=== PATIENT | female | born 2000 | race Caucasian/White ===

== ENCOUNTER 2020-03-29 13:14 | Outpatient (REF) | payer MEDICAID, SELFPAY ==
--- NOTE | 2020-03-29 13:27 | US_ITS ---
EXAMINATION: US DIAGNOSTIC ULTRASOUND BREAST, RIGHT CLINICAL INFORMATION: 20-year-old with pain lower outer right breast for 2 months. Recent right breast trauma with ecchymosis. Ecchymosis has resolved since injury. No palpable mass noted by patient. No discharge. No prior breast imaging. Family history breast cancer maternal grandmother age 60. COMPARISON: None. TECHNIQUE: Ultrasound right breast is targeted to the area of clinical concern 5:00 through 10:00 position. Grayscale imaging and color Doppler are performed without and with harmonics. FINDINGS: There is no focal suspicious finding. There is no cystic or solid mass, architectural abnormality, duct ectasia, or edema in the soft tissue planes. Results are discussed with the patient at time of visit, using an spanish interpreter. US/US breast RT limited IMPRESSION: Normal study. ASSESSMENT: BI-RADS 1: Negative RECOMMENDATION: Patient's right breast pain should be managed based on the clinical impression. Annual screening mammography beginning age 40, or earlier as clinical risk factors warrant. This patient's information was entered into a reminder system with a target due date for their next mammogram.
== END 2020-03-29 13:15 | disposition home or self-care (01) ==
LOC: HO.MAMMO 13:14
PROVIDERS: Visit Provider Nurse Practitioner Family
DX: N64.4 Mastodynia (principal)
CPT/HCPCS: 76642

== ENCOUNTER → 2022-07-21 11:00 | Outpatient (REF) | payer MEDICAID, SELFPAY ==
--- NOTE | 2022-07-21 11:05 | CA_ITS ---
Transthoracic Echocardiogram Patient (Last, First, Middle): Jarrod Wilder, Gender: Female Date of : 2000 Age: 22 Procedure Date: 07/21/2022 Procedure Type: Transthoracic Echocardiogram Location: OP Height: 167. cm Weight: 86.18 kg BSA: 1.95 m2 Heart Rate: 78 bpm BP: 115 / 65 mmHg Litigation Manager: ARACELY Referring MD: Giovanna Ann DO Symptoms: PALPITATIONS R00.2 Study Quality: Adequate ECG Rhythm: Sinus Conclusions: - The left ventricular systolic function is normal. The calculated ejection fraction is 60% by biplane method. - No obvious valvular pathology seen on this study. Findings Left Ventricle Normal left ventricular cavity size. There is normal left ventricular wall thickness. The left ventricular systolic function is normal. The calculated ejection fraction is 60% by biplane method. There is no evidence of regional wall motion abnormalities. Diastolic function is normal for age. Right Ventricle Normal right ventricular cavity size and systolic function. Atria Both atria are normal in size. Aortic Valve There is a normal trileaflet aortic valve. There is no aortic valve stenosis. There is no aortic valve regurgitation. Mitral Valve The mitral valve appears normal. There is no mitral valve regurgitation. There is no mitral valve stenosis. Pulmonic Valve The pulmonic valve is likely normal. Tricuspid Valve Normal tricuspid valve structure. There is trace tricuspid valve regurgitation. There is no evidence of pulmonary hypertension. Great Vessels The asc aorta is normal in size. Venous The inferior vena cava is normal in size and collapses greater than 50% with inspiration. Pericardium/Pleural There is no evidence of pericardial effusion. Prior Study Comparison No prior study available for comparison. Recommendations, Care & Conclusions No obvious valvular pathology seen on this study. Measurements 2D Linear Measurements IVSd: 0.83 0.6-0.9/0.6-1.0 cm LVIDd: 4.37 3.9-5.3/4.2-5.9 cm LVIDd Index: 2.24 2.4-3.2/2.2-3.1 cm/m2 LVIDs: 3.01 2.0-3.6 cm LVPWd: 0.81 0.7-1.1 cm LA Diam: 2.90 2.7-3.8/3.0-4.0 cm LAIDs Index: 1.49 1.5-2.3 cm/m2 LV Mass: 138.52 67-162/88-224 g LV Mass Index: 71.04 43-95/49-115 g/m2 LVOT Diam: 1.90 3.0+(-)1.3 cm 2D Systolic Function EF 4C: 60.80 >55% EF 2C: 60.90 >55% EF BiP: 59.90 >55% Mitral Valve MV Pk E: 0.85 MV PK A: 0.80 MV Decel Time: 217.00 E/A: 1.10 E'Lateral: 17.00 E'Medial: 10.20 E/E' Med: 8.30 E/E' Lat: 5.00 PHT: 63.00 MVA PHT: 3.49 Decel [place]: 3.92 Aortic Valve AoV Pk Eduard: 1.22 AoV Mn Eduard: 0.82 AoV VTI: 0.25 AoV Pk Grad: 6.00 Aov Mn Grad: 3.00 SHAY Cont.VTI: 2.21 LVOT LVOT Pk Eduard: 1.02 LVOT Mn Eduard: 0.71 LVOT VTI: 0.19 LVOT Pk Grad: 4.00 LVOT Mn Grad: 2.00 LVOT Diam: 1.90 LVOT Area: 2.84 Diastolic Function MV Pk E: 0.85 MV Pk A: 0.80 E/A: 1.10 E'Medial: 10.20 E/E' Med: 8.30 E' Laterial: 17.00 E/E' Lat: 5.00 Right Ventricle TAPSE (mm): 22.10 TVS' Eduard: 11.90 Tricuspid Valve TR Pk Eduard: 1.65 TR Pk Grad: 11.00 RA Press: 3.00 RVSP: 14.00 Great Vessels Aorta Sinus of Valsalva: 3.20 2.0-3.5 cm Ao Asc: 2.80 2.1-3.4 cm Pulmonary Valve PV Pk Eduard: 1.09 Peak PV Grad: 5.00 Updated in Other Vendor System with Status of Final Gilbert Rosario MD electronically signed on 07/21/2022 4:34:10 PM with status of Final
== END ==
LOC: HO.CARD 11:00
PROVIDERS: PCP Internal Medicine; Visit Provider Family Medicine
DX: R00.2 Palpitations (principal)
CPT/HCPCS: 93306

== ENCOUNTER 2023-01-11 19:04 | Outpatient (REF) | payer MEDICAID, SELFPAY ==
[2023-01-12 05:49] LABS: CT PCR NOT DETECTED (Not Detect.); NG PCR NOT DETECTED (Not Detect.)
== END 2023-01-11 19:05 | disposition home or self-care (01) ==
LOC: HO.HHCLNP 19:04
PROVIDERS: Visit Provider Advanced Practice Midwife
DX: Z11.3 Encounter for screening for infections with a predominantly sexual mode of transmission (principal)
CPT/HCPCS: 0353U; 88142

== ENCOUNTER 2025-01-16 16:18 | Outpatient (REF) | payer MEDICAID, SELFPAY ==
--- OUTSIDE RECORDS SUMMARY | 2025-01-16 14:45 | XMS_ITS | Encounter Summary ---
Author Organization [employer] Address [address] [place] [address] Care Team Providers Care Planer Hand Name Role Phone Giovanna Ann DO Primary Care Provider Reason for Visit * Reason Comments procidure Encounter Details Date Type Department Care Team (Latest Contact Info) Description 01/16/2025 2:45 PM EDT Procedure Visit [facility] [address] [place], [place] [phone] Cat Raymond CNM [address], [place] [phone] Encntr for removal and reinsertion of uterin contracep dev (Primary Dx); Screening examination for venereal disease Social History Tobacco Use Types Packs/Day Years Used Date Smoking Tobacco: Never Smokeless Tobacco: Never Tobacco Cessation:Counseling Given: Not Answered Alcohol Use Standard Drinks/Week Comments Never 0 (1 standard drink = 0.6 oz pur e alcohol) Housing Stability Answer Date Recorded What is your housing situation today? 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 Do you have problems with any of the following? None of the above 03/25/2023 Food Insecurity Answer Date Recorded Within the past 12 months, y ou worried that your food would run out before you got money to buy more: Never True 03/25/2023 Within the past 12 months,th e food you bought just didn't last and you didn't have enough money to get more: Never True Transportation Answer Date Recorded In the past 12 months, has l ack of transportation kept you from medical appts, meetings, work or from getting things needed for daily living? Yes, it has kept me from medical appointments or getting medications. 03/14/2023 Utilities Answer Date Recorded In the past 12 months, has t he electric, gas, oil or water company threatened to shut off services in your home? No 03/25/2023 Depression Answer Date Recorded Patient Health Questionnaire-2 Score 0 07/09/2022 Comments No Intention Date Recorded No desire to become (finding) 0 01/16/2025 Sex and Gender Information Value Date Recorded Sex Assigned at Female 04/06/2022 10:36 AM EDT Legal Sex Female 10:36 AM EDT Gender Identity Female 04/06/2022 10:36 AM EDT Sexual Orientation Choose not to disclose 2021 10:36 AM EDT documented as of this encounter Last Filed Vital Signs Vital Sign Reading Time Taken Comments Blood Pressure 122/68 01/16/2025 2:16 PM EDT Pulse 67 01/16/2025 2:16 PM EDT Temperature 36.7 C (98.1 F) 01/16/2025 2:16 PM EDT Respiratory Rate 14 01/16/2025 2:16 PM EDT Oxygen Saturation 98% 01/16/2025 2:16 PM EDT Inhaled Oxygen Concentration - - Weight 80.2 kg (176 lb 12.8 oz) 025 2:16 PM EDT Height - - Body Mass Index 30.35 01/11/2023 11:26 AM EDT documented in this encounter Progress Notes * Cat Raymond CNM - 01/16/2025 2:45 PM EDTAssociated Order(s): IUD Management Subjective Patient ID: Jarrod Ferreira is a 24 y.o. female who presents for IUD replacement Pap NIL 01/2023. Mirena inserted after of 6y old (not immediately PP) in 2017. Amenorrheic with IUD. Would like replacement today. Aware we have Liletta here (same medication dose, same durationof use, different name). test negative today. No contraindications to IUD. Review of Systems Genitourinary: Negative for dyspareunia, menstrual problem, vaginal bleeding, vaginal discharge andvaginal pain. Objective BP 122/68 (BP Location: Left arm, Patient Position: Sitting, BP Cuff Size: Adult) Pulse 67 Temp98.1 ??F (36.7 ??C) (Oral) Resp 14 Wt 176 lb 12.8 oz (80.2 kg) SpO2 98% BMI 30.35 kg/m?? Physical Exam Business Ethics Professor present: ARABELLA Peña. Constitutional: Appearance: Normal appearance. Genitourinary: General: Normal vulva. Labia: Right: No rash, tenderness, lesion or injury. Left: No rash, tenderness, lesion or injury. Vagina: Normal. No signs of injury and foreign body. No vaginal discharge, erythema, tenderness, bleeding or lesions. Cervix: No cervical motion tenderness, discharge, friability, lesion, erythema, cervical bleeding or eversion. Uterus: Normal. Not enlarged and not tender. Adnexa: Right adnexa normal and left adnexa normal. Right: No mass, tenderness or fullness. Left: No mass, tenderness or fullness. Comments: IUD strings noted. Body of IUD nonpalpable Neurological: Mental Status: She is alert. Psychiatric: Mood and Affect: Mood normal. Behavior: Behavior normal. Assessment/Plan Diagnoses and all orders for this visit: Encntr for removal and reinsertion of uterin contracep dev - POCT , urine manually resulted - ibuprofen tablet 400 mg - lidocaine 2 % gel - Levonorgestrel intrauterine device 20.1 mcg/day Mild vasovagal reaction after insertion. Resolved with rest, position change and cold compress. No loss of consciousness. Reviewed normal side effects and danger signs. Report heavy bleeding, fever, chills or abdominal pain. Reviewed how to check IUD strings. Report if change in string length, strings not palpable or ifplastic is felt. Do not pull on strings. Remove/replace IUD by 8 y from insertion. May remove any time before then if desired. Advised IUD not effective for 7 days, use backup method until then, and until followup visit as precaution. IUD Management Performed by: Cat Raymond CNM Authorized by: Cat Raymond CNM Procedure: IUD removal and insertion Consent obtained by patient, parent, or legal power of deputy prosecuting attorney - including discussion of procedurerisks and benefits, patient questions answered, and patient education provided: yes Other reason for removal: Expiration Strings visualized: yes Cervix cleaned with: iodopovidone Tenaculum applied to cervix: yes (posterior lip) IUD grasped by forceps: yes IUD removed: yes Removed without complications: yes IUD intact: yes risk: reasonably certain the patient is not Immediately prior to procedure a time out was called: yes Pelvic exam performed: yes Speculum placed in vagina: yes Cervix cleaned and prepped: yes Tenaculum/Allis/Ring Forceps applied to cervix: yes Anesthesia used: yes Local anesthesia: Topical Local anesthetic: Lidocaine Other local anesthetic: GlydoGel Anesthetic strength (%): 2 Volume (mL): 6 Uterus sound depth (cm): 8 IUD inserted without complications: yes OSM: 20.1 mcg/day Levonorgestrel 20.1 MCG/DAY Strings trimmed to (cm): 3 Patient tolerated procedure well: yes Intended removal date: 8 years Insertion comments: Mild vasovagal reaction after insertion. Resolved with rest, position change and cold compress. No loss of consciousness. Screening examination for venereal disease - Chlamydia/N. Gonorrhoeae, PCR, Urine documented in this encounter Plan of Treatment Upcoming Encounters Date Type Department Care Team (Late st Contact Info) Description 02/15/2025 2:00 PM EDT Office Visit [facility] [address] [place] [phone] Cat Raymond CNM [address] [place] [phone] 02/28/2025 2:30 PM EDT Office Visit [facility] [address] [place] [phone] Susan Ratliff MD [address] [place] [phone] Scheduled Orders Name Type Priority Associated Diagnoses Orde r Schedule Chlamydia/N. Gonorrhoeae, PCR, Urine Lab Routine Screening examination for venereal disease Ordered: 01/16/2025 documented as of this encounter Procedures Procedure Name Priority Date/Time Associated Diagnosis Comments IA REMOVAL INTRAUTERINE DEVICE IUD Routine 01/16/2025 2:45 PM EDT Encntr for removal and reinsertion of uterin contracep dev IA INSERTION INTRAUTERINE DEVICE IUD Routine 01/16/2025 2:45 PM EDT Encntr for removal and reinsertion of uterin contracep dev POCT , URINE Routine 01/16/2025 2:25 PM EDT Encntr for removal and reinsertion of uterin contracep dev documented in this encounter Results * IA INSERTION INTRAUTERINE DEVICE IUD, IA REMOVAL INTRAUTERINE DEVICE IUD (01/16/2025 2:45 PM EDT) Cat Fermin CNM - 01/16/2025 2:45 PM EDT Cat Raymond CNM 01/16/2025 3:27 PM IUD Management Performed by: Cat Raymond CNM Authorized by: Cat Raymond CNM Procedure: IUD removal and insertion Consent obtained by patient, parent, or legal power of deputy prosecuting attorney - including discussion of procedure risks and benefits, patient questions answered, and patient education provided: yes Other reason for removal: Expiration Strings visualized: yes Cervix cleaned with: iodopovidone Tenaculum applied to cervix: yes (posterior lip) IUD grasped by forceps: yes IUD removed: yes Removed without complications: yes IUD intact: yes risk: reasonably certain the patient is not Immediately prior to procedure a time out was called: yes Pelvic exam performed: yes Speculum placed in vagina: yes Cervix cleaned and prepped: yes Tenaculum/Allis/Ring Forceps applied to cervix: yes Anesthesia used: yes Local anesthesia: Topical Local anesthetic: Lidocaine Other local anesthetic: GlydoGel Anesthetic strength (%): 2 Volume (mL): 6 Uterus sound depth (cm): 8 IUD inserted without complications: yes OSM: 20.1 mcg/day Levonorgestrel 20.1 MCG/DAY Strings trimmed to (cm): 3 Patient tolerated procedure well: yes Intended removal date: 8 years Insertion comments: Mild vasovagal reaction after insertion. Resolved with rest, position change and cold compress. No loss of consciousness. us Cat Raymond CNM IN CLINIC/BEDSIDE ORDERAB LES Final Result * POCT , urine manually resulted (01/16/2025 2:25 PM EDT) Preg Test, Ur Negative Negative, Indeterminate, None Detected, Invalid, Specimen unsatisfactory for evaluation, Weakly Positive, 2+ QC Media Lot # [id number] Lot# Expiration Date [id number] Urine 01/16/2025 2:25 PM EDT Cat Raymond CNM POINT OF CARE TEST ENTER/ EDIT ORDERABLES Final Result documented in this encounter Visit Diagnoses Diagnosis Encntr for removal and reinsertion of uterin contracep dev- Primary Screening examination for venereal disease documented in this encounter Administered Medications Active Administered Medications - up to 3 most recent administrations Medication Order MAR Action Action Date Dose Rate Site lidocaine 2 % gel Topical, As needed, mild pain, Starting on Wed01/16/25 at 1425Indications:Encntr for removal and reinsertion of uterin contracep dev Given 01/16/2025 2:30 PM EDT Inactive Administered Medications - up to 3 most recent administrations Medication Order MAR Action Action Date Dose Rate Site ibuprofen tablet 400 mg 400 mg, Oral, Once, On Wed01/16/25 at 1500, For 1 doseIndications:Encntr for removal and reinsertion of uterin contracep dev Given 01/16/2025 2:53 PM EDT 400 mg Levonorgestrel intrauterine device 20.1 mcg/day 20.1 mcg/day, Intrauterine, Once PRN Procedure, Starting on Wed01/16/25 at 1445, For 1 doseIndications:Encntr for removal and reinsertion of uterin contracep dev Given 01/16/2025 2:45 PM EDT 20.1 mcg/day documented in this encounter Care Teams Planer Hand Relationship Specialty Start Date End Date Giovanna Ann DO [address] [place] [phone] PCP - General Family Medicine 03/05/20 documented as of this encounter
[2025-01-17 04:12] LABS: CT PCR Urine NOT DETECTED (Not Detect.); NG PCR Urine NOT DETECTED (Not Detect.)
== END 2025-01-16 16:19 | disposition home or self-care (01) ==
LOC: HO.HHCLNP 16:18
PROVIDERS: Visit Provider Advanced Practice Midwife
DX: Z11.3 Encounter for screening for infections with a predominantly sexual mode of transmission (principal); Z11.8 Encounter for screening for other infectious and parasitic diseases
CPT/HCPCS: 87491; 87591

== ENCOUNTER 2025-01-28 12:22 | Emergency (ER) | payer MEDICAID, SELFPAY ==
--- NOTE | ~2025-01-28 | US_ITS ---
CLINICAL HISTORY: pain --- Additional Notes or Special Instructions: recent IUD placement US female pelvis LMP:Unknown. Technique: Ultrasound examination of the pelvis was performed with transabdominal and transvaginal technique for better visualization of the ovaries. Images include: color Doppler. Comparison: None available Findings: Anteverted uterus measuring 8.9 x 3.9 x 3.7cm without masses. Intrauterine device in appropriate position. Thin endometrium with fluid in the endometrial canal. The right ovary is normal in size, measuring 3.2 x 2.4 x 2.5cm, volume of 10.0mL. There is normal echogenicity and vascularity. Heterogeneous avascular lesion measuring 2.2 x 1.7 x 1.9 cm. The left ovary is normal in size, measuring 2.7 x 1.6 x 1.9cm, volume of 4.3mL. There is normal echogenicity and vascularity. No lesions. There is a small amount of fluid in the cul-de-sac, which is likely physiologic. Impression: Properly positioned intrauterine device. 2.2 cm right ovarian cyst could be a hemorrhagic corpus luteum. 8-12 week follow up pelvic ultrasound can be performed. This document has been electronically signed by: Maura Celestin MD on 01/28/2025 17:14:56
[2025-01-28 12:29] VITALS: BP 122/74; PULSE 65; RESP 18; TEMP 36.8; O2SAT 99; BMI 30.3
--- NOTE | 2025-01-28 12:36 | PC.NURSE ---
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
--- NOTE | 2025-01-28 12:37 | ED_ITS ---
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 Patient denies any bleeding. She denies fevers, chills, nausea, vomiting, urinary symptoms. She denies any new sexual partners. She is sexually active with 1 male partner. She is not concern for sexually transmitted diseases. Related Data Allergies Allergy/AdvReac Type Severity Reaction Status Date / Time shrimp (SHRIMP) Allergy Severe SWELLING Verified 01/28/25 12:30 Review of Systems 2 Review of Systems: Yes all other systems are reviewed and are negative Constitutional: Constitutional: Reports no additional constitutional complaints, Denies body ache(s), Denies chills, Denies fever(s), Denies headache(s) and Denies weakness Eyes: Eyes: Reports no additional eye complaints and Denies change in vision ENT: Reports system reviewed and no additional complaints, except as documented, Denies dizziness, Denies headache(s), Denies nasal congestion, Denies nasal discharge and Denies neck pain Cardiovascular: Cardiovascular: Reports no additional cardiovascular complaints, Denies chest pain, Denies leg edema and Denies dyspnea Respiratory: Respiratory: Reports no additional respiratory complaints, Denies cough and Denies dyspnea Gastrointestinal: Gastrointestinal: Reports no additional gastrointestinal complaints, Reports abdominal pain, Denies diarrhea, Denies nausea and Denies vomiting Genitourinary: Genitourinary: Reports no additional female genitourinary complaints and Denies urinary incontinence Musculoskeletal: Musculoskeletal: Reports no additional musculoskeletal complaints, Denies back pain, Denies arthralgias, Denies joint swelling, Denies neck pain, Denies numbness and Denies tingling Integumentary/Breasts: Skin/Breast: Reports system reviewed and no additional complaints, except as docu and Denies rash Neurologic: Reports system reviewed and no additional complaints, except as documented, Denies Abnormal speech present, Denies dizziness, Denies headache(s), Denies numbness, Denies tingling and Denies weakness PMFSH Past Medical History Attestation statement: The following information was validated with the patient. Source: old records reviewed and nursing notes reviewed Social History Social History Advance Directives: No Advance Directives Information Provided: No Do you have a plan to hurt others: No Plan Physical Exam ED Vital Signs: Vital Signs - 24 hr 01/28/25 12:29 01/28/25 16:19 01/28/25 17:47 Temperature 98.2 F 98.6 F Pulse Rate 65 69 69 Respiratory Rate 18 18 18 Blood Pressure 122/74 110/65 110/65 Pulse Oximetry 99 99 99 Oxygen Delivery Method Room Air Room Air Room Air BMI result Body Mass Index 30.3 Const General: cooperative, healthy appearing, comfortable and no acute distress Orientation/consciousness: patient oriented x3 Limitations: no limitations HENMT Head: Yes normal to inspection Ears: hearing grossly normal bilaterally General nose exam: Normal external nose present Face and sinus: Yes normal facial exam Mouth: Normal oral and palatal mucosa present Throat: Yes posterior oropharynx normal Eyes General: appearance normal, both eyes and all related structures Pupils: Equal, round and reactive pupils present Neck Neck: Yes normal visual inspection Chest Chest palpation & inspection: normal inspection of the chest Resp Effort & Inspection: normal respiratory effort Auscultation: clear to auscultation bilaterally Cardio Rate: regular rate Rhythm: regular rhythm Peripheral pulses: Peripheral pulses 2+ throughout GI Inspection: Yes normal to inspection Palpation (GI): Soft to palpation and nontender Auscultation: normal bowel sounds Other: 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 External Female Exam: normal external appearance Speculum Exam - Vagina: normal appearance of the vagina Speculum Exam - Cervix: normal appearance of the cervix Back/Spine/Pelvis Thoracic/Lumbar Spine: thoracic and lumbar spine normal to inspection Skin General skin exam: no rashes or lesions noted Neuro General: patient oriented x3, no focal motor deficits and normal sensation to monofilament Cranial nerves: Yes Equal, round and reactive pupils present Cognition (Neuro): normal cognition Speech: No Abnormal speech present Gait exam (Neuro): Normal gait present Motor exam (neuro): 5/5 motor strength present throughout Extrem General: Yes normal to inspection Course Course Course Narrative: RME, this is a rapid medical exam performed by Raúl Rivera please refer to primary provider for complete H&P- 24-year-old female presents for evaluation of pelvic pain. She reports that last week she had an IUD inserted and has had severe cramping and pain. She reports getting sweaty when the pain starts. Plan for basic labs, , urinalysis and an ultrasound Reevaluation(s) Reevaluation #1: Ultrasound showed IUD in the correct place. There is no signs of infection in her urine. Her labs are unremarkable. I did review this with the patient. She does have a small cyst on the right ovary. She does want me to remove IUD. She is aware that she will need to use appropriate control after this. Reviewed worrisome signs and symptoms of when to return to the emergency room. Comfortable plan for discharge home Procedures Procedure Narrative Procedure Narrative: The patient's IUD was removed with ring forceps. Patient tolerated procedure well Medical Decision Making Medical Decision Making MDM Narrative: This is a 24-year-old female with no known medical history presents the ER with complaints of lower pelvic cramping for the last 1 week after having an IUD placed at [facility]. Patient denies any bleeding. She denies fevers, chills, nausea, vomiting, urinary symptoms. She denies any new sexual partners. She is sexually active with 1 male partner. She is not concern for sexually transmitted diseases. No focal abdominal pain on exam. Pelvic exam shows IUD with strings noted. No cervical motion tenderness with bimanual tenderness. No adnexal tenderness. Will obtain labs, UA, urine , ultrasound to confirm placement Differential Diagnosis Differential Diagnoses: The differential diagnosis associated with the presentation includes IUD malposition, STI, UTI Low suspicion for acute abdomen, TOA, PID based on clinical exam Admission/Observation Consideration of admission/observation: Escalation of care including admission/observation considered Lab Data [facility] Lab Attestation statement: I reviewed the patient's lab results. 01/28/25 13:08 01/28/25 13:09 Labs: Lab Results 01/28/25 01/28/25 01/28/25 Range/Units 13:08 13:09 16:26 WBC 8.7 (4.8-10.8) X10*3/uL RBC 4.67 (4.20-5.50) X10*6/uL Hgb 13.9 (12.0-16.0) g/dl Hct 41.1 (37.0-47.0) % MCV 88.0 (80.0-98.0) fL MCH 29.8 (27.0-33.0) pg MCHC 33.8 (31.0-35.0) g/dl RDW 12.4 (11.0-16.0) % Plt Count 293 (160-400) X10*3/uL MPV 9.4 (9.4-12.3) fL Immature Gran % (Auto) 0.5 H (0.0-0.4) % Neut % (Auto) 73.5 H (45-73) % Lymph % (Auto) 18.2 L (20-40) % [place] % (Auto) 7.0 (2-11) % Eos % (Auto) 0.3 (0-4) % Baso % (Auto) 0.5 (0-2) % Lymph # (Auto) 1.6 (1.2-4.9) X10*3/uL [place] # (Auto) 0.6 (0.1-1.2) X10*3/uL Eos # (Auto) 0.0 (0.0-0.4) X10*3/uL Baso # (Auto) 0.0 (0.0-0.2) X10*3/uL Abs Immat Gran (auto) 0.04 H (0.00-0.03) X10*3/uL Absolute Neuts (auto) 6.4 (2.0-8.3) x10*3/uL Absolute Nucleated RBC 0.000 (0.0-0.012) X10*3/uL Nucleated RBC % (auto) 0.0 (0.0-0.2) /100WBC Sodium 140 (135-145) mmol/L Potassium 4.2 (3.3-5.1) mmol/L Chloride 106 (96-108) mmol/L Carbon Dioxide 25 (22-29) mmol/L Anion Gap 13 (12-20) BUN 12 (9-16) mg/dL Creatinine 0.85 (0.5-1.4) mg/dL Estim Creat Clear Calc 102.7 Estimated GFR > 60 Random Glucose 84 (60-115) mg/dL Calcium 9.3 (8.4-10.2) mg/dL Total Bilirubin 0.7 (0.0-1.0) mg/dL AST 25 (5-31) U/L ALT 20 (0-31) U/L Alkaline Phosphatase 57 (39-117) U/L Total Protein 7.0 (6.5-8.0) g/dL Albumin 4.4 (3.5-5.0) g/dL Beta HCG, Quant < 2 mIU/mL Urine Color Yellow Urine Appearance Clear Urine pH 7.5 (5.0-9.0) Ur Specific [place] 1.010 (1.005-1.025) Urine Protein Negative (Neg-Trace) mg/dL Urine Glucose (UA) Negative (Negative) mg/dL Urine Ketones Negative (Negative) mg/dL Urine Blood Negative (Negative) Urine Nitrite Negative (Negative) Ur Leukocyte Esterase Trace H (Negative) Urine RBC 0-2 (0-2) /HPF Urine WBC 0-5 (0-5) /HPF Ur Squamous Epith Cells 0-2 (0-2) /HPF Urine Bacteria None Seen (None Seen) Hyaline Casts 0-2 (0-2) /LPF Urine Test NEGATIVE (NEGATIVE) Independent Interpretation I performed an independent interpretation of an: Ultrasound Interpretation: I independently viewed the ultrasound agree with the radiology report Radiology Impression Discussion of test interpretation with radiology: I have reviewed the radiologist's reading. Radiologist Impression: [place] [phone] Ultrasound Report Signed Patient: Jarrod Wilder MR#: [id number] : 2000 Acct:[id number] Age/Sex: 24 / F ADM Date: 01/28/25 Loc: .ED Attending Dr: Ordering Physician: Mata Rivera Date of Service: 01/28/25 Procedure(s): US pelvic and transvaginal Accession Number(s): [id number] cc: Giovanna Ann DO; Mata Rivera~ CLINICAL HISTORY: pain --- Additional Notes or Special Instructions: recent IUD placement US female pelvis LMP:Unknown. Technique: Ultrasound examination of the pelvis was performed with transabdominal and transvaginal technique for better visualization of the ovaries. Images include: color Doppler. Comparison: None available Findings: Anteverted uterus measuring 8.9 x 3.9 x 3.7cm without masses. Intrauterine device in appropriate position. Thin endometrium with fluid in the endometrial canal. The right ovary is normal in size, measuring 3.2 x 2.4 x 2.5cm, volume of 10.0mL. There is normal echogenicity and vascularity. Heterogeneous avascular lesion measuring 2.2 x 1.7 x 1.9 cm. The left ovary is normal in size, measuring 2.7 x 1.6 x 1.9cm, volume of 4.3mL. There is normal echogenicity and vascularity. No lesions. There is a small amount of fluid in the cul-de-sac, which is likely physiologic. Impression: Properly positioned intrauterine device. 2.2 cm right ovarian cyst could be a hemorrhagic corpus luteum. 8-12 week follow up pelvic ultrasound can be performed. Discharge Plan Discharge Clinical Impression: Pelvic pain Patient Disposition: Home, Self-Care Instructions: Pelvic Pain (ED) Additional Instructions: Expect to have some cramping and bleeding after having your IUD removed You may take Motrin or Tylenol for pain as needed We will call you if your swabs are positive for any vaginal infections and if you require any additional treatment Be aware you will need an alternate control method Referrals: Giovanna Ann DO [Primary Care Provider, Internal Medicine] Interventions: ED Discharge Assessment Last Done: 01/28/25 17:47 Discharge Date/Time: 01/28/25 17:49 Print Language: Armenian
[2025-01-28 13:29] LABS: MANUAL DIFF FLAG NO
[2025-01-28 13:39] LABS: Hematocrit 41.1 % (37.0-47.0); Hemoglobin 13.9 g/dl (12.0-16.0); Imm Gran Abs Auto 0.04 X10*3/uL (0.00-0.03); Imm Gran Pct Auto 0.5 % (0.0-0.4); Lymphocytes Absolute Auto 1.6 X10*3/uL (1.2-4.9); Mean Corpuscular HGB Conc 33.8 g/dl (31.0-35.0); Mean Corpuscular Hemoglobin 29.8 pg (27.0-33.0); Mean Corpuscular Volume 88.0 fL (80.0-98.0); NRBC Abs Auto 0.000 X10*3/uL (0.0-0.012); NRBC Pct Auto 0.0 /100WBC (0.0-0.2); Platelet Count 293 X10*3/uL (160-400); Red Blood Count 4.67 X10*6/uL (4.20-5.50); White Blood Count 8.7 X10*3/uL (4.8-10.8)
[2025-01-28 13:54] LABS: Alanine Aminotransferase 20 U/L (0-31); Albumin Level 4.4 g/dL (3.5-5.0); Alkaline Phosphatase 57 U/L (39-117); Anion Gap 13 (12-20); Aspartate Amino Transferase 25 U/L (5-31); Blood Urea Nitrogen 12 mg/dL (9-16); Calcium 9.3 mg/dL (8.4-10.2); Carbon Dioxide 25 mmol/L (22-29); Chloride 106 mmol/L (96-108); Creatinine Clr Calc Pharmacy 102.7; Estimated Glomerular Filt Rate > 60; Potassium 4.2 mmol/L (3.3-5.1); Sodium 140 mmol/L (135-145); Total Protein 7.0 g/dL (6.5-8.0)
--- OUTSIDE RECORDS SUMMARY | 2025-01-28 15:22 | XMS_ITS | Encounter Summary ---
Author Organization [employer] Address [address] [place] [address] Care Team Providers Care Laboratory Clerk Name Role Phone Giovanna Ann Primary Care Provider Encounter Details Date Type Department Care Team (Late st Contact Info) Description 01/28/2025 Orders Only GENERIC EXTERNAL DATA DEPARTMENT Provider, Generic External Data Social History Tobacco Use Types Packs/Day Years Used Date Smoking Tobacco: Never Smokeless Tobacco: Never Alcohol Use Standard Drinks/Week Comments Never 0 [...] Health Questionnaire-2 Score 0 07/09/2022 Comments No Sex and Gender Information Value Date Recorded Sex Assigned at Female 04/06/2022 10:36 AM EDT Legal Sex Female 10:36 AM EDT Gender Identity Female 04/06/2022 10:36 AM EDT Sexual Orientation Choose not to disclose 2021 10:36 AM EDT documented as of this encounter Plan of Treatment Upcoming Encounters Date Type Department Care Team (Late st Contact Info) Description 02/15/2025 2:00 PM EDT Office Visit [facility] [address], [place] [phone] Cat Raymond CNM [address] [place] [phone] 02/28/2025 2:30 PM EDT Office Visit [facility] [address], [place] [phone] Susan Ratliff MD [address] [place], [place] [phone] documented as of this encounter Procedures Procedure Name Priority Date/Time Associated Diagnosis Comments HCG, TOTAL, QN Routine 01/28/2025 1:09 PM EDT COMPREHENSIVE METABOLIC PANEL Routine 01/28/2025 1:09 PM EDT CBC WITH AUTO DIFFERENTIAL Routine 01/28/2025 1:08 PM EDT documented in this encounter Results * hCG, Total, Quantitative (01/28/2025 1:09 PM EDT) HCG Quantitative <2 mIU/mL [facility] Comment:Weeks post LMP Appro ximate hCG(Last Menstrual Period) Range (mIU/ml)3 - 4 weeks 9 - 1304 - 5 weeks 75 - 2,6005 - 6 weeks 850 - 20,8006 - 7 weeks 4000 - 100,2007 - 12 weeks 11,500 - 289,36639 - 16 weeks 18,300 - 137,36979 - 29 weeks (2nd trimester) 1,400 - 53,15240 - 41 weeks (3rd trimester) 940 - 60,000The Gill B- hCG assay is used for the early detection ofpregnancy; it cannot be used to diagnose any conditionunrelated to . If a B-hCG level is not supportedby the clinical evidence, results should be confirmed by analternative method (qualitative urine hCG, for example). 01/28/2025 1:09 PM EDT 01/28/2025 1:28 PM EDT us Generic External Data Provider LAB BLOOD ORDERAB LES Final Result [facility] [address] [place] [phone] * Comprehensive Metabolic Panel (01/28/2025 1:09 PM EDT) Sodium 140 135 - 145 mmol/L [facility] Potassium 4.2 3.3 - 5.1 mmol/L [facility] Chloride 106 96 - 108 mmol/L [facility] Carbon Dioxide 25 22 - 29 mmol/L [facility] Anion Gap 13 12 - 20 [facility] Urea Nitrogen (BUN) 12 9 - 16 mg/dL [facility] Creatinine, Serum 0.85 0.5 - 1.4 mg/dL [facility] Creatinine Clr Calc Pharmacy 102.7 [facility] Comment:Provided height and weight: 162.56 cm,80.1 kg.eGFR (calculated from the MDRD study equation) and eCrCl(calculated from the Cockcroft-Gault equation) are based ondifferent parameters and may not yield comparable results.If eCrCl result is absurd, please check patient'sheight/weight. Estimated Glomerular Filt Rate >60 [facility] Comment:Chronic Kidney Disea se: Estimated GFR < 60 mL/min/1.69g8Ivdgma Kidney Disease: Estimated GFR < 15 mL/min/1.73m2 Glucose 84 60 - 115 mg/dL [facility] Calcium 9.3 8.4 - 10.2 mg/dL [facility] Bilirubin, Total 0.7 0.0 - 1.0 mg/dL [facility] Aspartate Amino Transferase 25 5 - 31 U/L [facility] Alanine Aminotransferase 20 0 - 31 U/L [facility] Total Protein 7.0 6.5 - 8.0 g/dL [facility] Albumin Level 4.4 3.5 - 5.0 g/dL [facility] Alkaline Phosphatase 57 39 - 117 U/L [facility] 01/28/2025 1:09 PM EDT 01/28/2025 1:28 PM EDT us Generic External Data Provider LAB BLOOD ORDERAB LES Final Result [facility] [address] [place] [phone] [phone] * (ABNORMAL) CBC auto differential (01/28/2025 1:08 PM EDT) White Blood Count 8.7 4.8 - 10.8 X10*3/uL [facility] Red Blood Count 4.67 4.20 - 5.50 X10*6/uL [facility] Hemoglobin 13.9 12.0 - 16.0 g/dl [facility] Hematocrit 41.1 37.0 - 47.0 % [facility] Mean Corpuscular Volume 88.0 80.0 - 98.0 fL [facility] Mean Corpuscular Hemoglobin 29.8 27.0 - 33.0 pg [facility] Mean Corpuscular HGB Conc 33.8 31.0 - 35.0 g/dl [facility] Red Cell Distribution Width 12.4 11.0 - 16.0 % [facility] Platelet Count 293 160 - 400 X10*3/uL [facility] Mean Platelet Volume 9.4 9.4 - 12.3 fL [facility] Neutrophils Percent Auto 73.5(H) 45 - 73 % [facility] Imm Gran Pct Auto 0.5(H) 0.0 - 0.4 % [facility] Lymphocytes Percent Auto 18.2(L) 20 - 40 % [facility] Monocytes Percent Auto 7.0 2 - 11 % [facility] Eosinophils Percent Auto 0.3 0 - 4 % [facility] Basophils Percent Auto 0.5 0 - 2 % [facility] NRBC Pct Auto 0.0 0.0 - 0.2 /100WBC [facility] Neutrophils Absolute Auto 6.4 2.0 - 8.3 x10*3/uL [facility] Imm Gran Abs Auto 0.04(H) 0.00 - 0.03 X10*3/uL [facility] Lymphocytes Absolute Auto 1.6 1.2 - 4.9 X10*3/uL [facility] Monocytes Absolute Auto 0.6 0.1 - 1.2 X10*3/uL [facility] Eosinophils Absolute Auto 0.0 0.0 - 0.4 X10*3/uL [facility] Basophils Absolute Auto 0.0 0.0 - 0.2 X10*3/uL [facility] NRBC Abs Auto 0.000 0.0 - 0.012 X10*3/uL [facility] 01/28/2025 1:08 PM EDT 01/28/2025 1:28 PM EDT us Generic External Data Provider LAB BLOOD ORDERAB LES Final Result Performing Organization Address City/State/[facility] Co de Phone Number [facility] [address] [place] [phone] [phone] documented in this encounter Visit Diagnoses Not on filedocumented in this encounter Care Teams Laboratory Clerk Relationship Specialty Start Date End Date Giovanna Ann DO [address] [place] [phone] PCP - General Family Medicine 03/05/20 documented as of this encounter
[2025-01-28 16:19] VITALS: BP 110/65; PULSE 69; RESP 18; O2SAT 99
[2025-01-28 16:36] LABS: Appearance Urine Clear; Glucose Urine UA Negative (Negative); PH 7.5 (5.0-9.0); Specific Gravity - Urine 1.010 (1.005-1.025); UMIC TRIGGER UACC YES; UPreg QC Valid YES
[2025-01-28 17:47] VITALS: BP 110/65; PULSE 69; RESP 18; TEMP 37; O2SAT 99
[2025-01-29 09:37] LABS: Bacterial Vaginosis PCR NEGATIVE (Negative); Candida Group PCR NOT DETECTED (Not Detect); Candida glab krusei PCR NOT DETECTED (Not Detect); Trichomonas vaginalis PCR NOT DETECTED (Not Detect)
[2025-01-29 10:08] LABS: CT PCR NOT DETECTED (Not Detect.); NG PCR NOT DETECTED (Not Detect.)
== END 2025-01-28 17:49 | disposition home or self-care (01) ==
PROVIDERS: Nurse Practitioner Family; Physician Assistant; Emergency Provider Emergency Medicine; PCP Family Medicine
DX: R10.2 Pelvic and perineal pain (principal); N83.201 Unspecified ovarian cyst, right side; R25.2 Cramp and spasm; Z30.432 Encounter for removal of intrauterine contraceptive device; Z20.2 Contact with and (suspected) exposure to infections with a predominantly sexual mode of transmission
CPT/HCPCS: 36415; 76830; 76856; 80053; 81001; 81025; 81515; 84702; 85025; 87491; 87591; 99284

== ENCOUNTER → 2025-01-28 12:37 | Outpatient (BNV) | payer MEDICAID, SELFPAY | PROVIDERS: Emergency Provider Emergency Medicine; PCP Family Medicine; Visit Provider Radiology Diagnostic Radiology | DX: N83.201 Unspecified ovarian cyst, right side (principal) | CPT/HCPCS: 76830; 76856 ==

== ENCOUNTER 2025-04-27 14:28 | Outpatient (REF) | payer MEDICAID, SELFPAY ==
--- NOTE | ~2025-04-27 | US_ITS ---
EXAMINATION: US PELVIS TRANSABDOMINAL AND TRANSVAGINAL HISTORY: 6 wk f/u u/s for right ovarian cyst, due early March COMPARISON: Comparison is made with the prior examination dated 01/28/2025. TECHNIQUE: Transabdominal and endovaginal real-time 2D gonzales-scale ultrasound was performed. FINDINGS: Uterus: The uterus is normal in size, measuring 8.3 x 3.9 x 5.3 cm. Myometrium has a normal echotexture. No fibroids are identified. Endometrium: The endometrial stripe measures 4 mm in thickness. Right ovary: The right ovary measures 6.5 x 3.8 x 3.1 cm. There is a multiseptated cystic lesion with locules measuring 3.0 x 3.0 x 3.0 cm and 3.1 x 3.2 x 3.2 cm. The smaller locule contains a 2.5 cm solid-appearing nodule. Left ovary: The left ovary measures 3.1 x 1.6 x 1.8 cm. The left ovary is normal in size and echotexture. Pelvic fluid: none. US/US pelvic and transvaginal IMPRESSION: Multiseptated cystic lesion in the right ovary with a 2.5 cm solid-appearing nodule within one of the locules. This could represent a retracting clot. A follow-up examination is recommended in 6 weeks, at a different time in the patient's menstrual cycle, to document resolution. Electronically signed by: Roly Cook MD 04/27/2025 03:42 PM ALEX
--- OUTSIDE RECORDS SUMMARY | 2025-04-27 14:49 | XMS_ITS | Clinical Summary ---
Author Organization [employer] Address [address] [place] [address] [address] [place] [address] Care Team Providers Care Pantry Attendant Name Role Phone Giovanna Ann DO Primary Care Provider Allergies No known active allergies Medications Vit-Fe Fumarate-FA ( Plus) 27-1 MG tablet One tablet by mouth daily 30 tablet 11 02/15/2025 Active Hospital, Clinic, or Other Facility Administered Medication Ordered Dose Route Frequency Start Date End Date Status lidocaine 2 % gelIndications:Encntr for removal and reinsertion of uterin contracep dev TOP As needed 01/16/2025 Acti ve Active Problems Problem Noted Date Diagnosed Date Obesity 07/09/2022 Vitamin D deficiency 07/09/2022 Healthcare maintenance 07/09/2022 Assessment & Plan (07/09/2022 10:06 AM EST): -s/p flu vaccine MAR 2020->repeat today -encouraged COVID vaccine -s/p Tdap today -pap nml JUN 2019 w/ [facility] appeals rn -random labs nml MAY 2019->repeat prior to next visit -STI/HIV screening neg MAY 2019 Encounters Date Type Department Care Team Description 03/09/2025 Telephone [facility] [address] [place] [phone] Giovanna Ann DO Appointment Request 03/09/2025 Telephone [facility] [address] [place], [place] [phone] Giovanna Ann DO No Show 03/07/2025 Telephone [facility] [address] [place] [address] Giovanna Ann DO Chart Prep 03/01/2025 Patient Outreach [facility] [address] [place] [phone] Giovanna Ann DO Pre-visit Planning ((Unable to reach for PVP screening and or LVM) to be completed in office (SDOH completed 02/15/2025) 02/27/2025 Telephone [facility] [address] [place] [phone] Giovanna Ann DO chart prep 02/20/2025 Patient Outreach [facility] [address] [place] [phone] Giovanna Ann DO Pre-visit Planning (SDOH screening completed on 02/15/2025) 02/15/2025 2:00 PM EDT Office Visit [address] [address] Ibrahima Polk CNM Right ovarian cyst (Primary Dx); Encounter for preconception consultation 02/15/2025 Travel 02/14/2025 Telephone [facility] [address] [place] [phone] Lori Vasquez DC 01/28/2025 Orders Only GENERIC EXTERNAL DATA DEPARTMENT Provider, Generic External Data from Last 3 Months Immunizations Immunization Administration Dates Next Due Influenza injectable quadriv alent preservative free 02/27/2022,03/12/2020,06/29/2019 Influenza, seasonal, injecta ble, preservative free 06/25/2015 Tdap 02/27/2022 Family History Medical History Relation Name Comments Breast cancer Maternal Grandmother Relation Name Status Comments Maternal Grandmother Social History Tobacco Use Types Packs/Day Years Used Date Smoking Tobacco: Never Smokeless Tobacco: Never Tobacco Cessation:Counseling Given: Not Answered Alcohol Use Standard Drinks/Week Comments Never 0 (1 standard drink = 0.6 oz pur e alcohol) Depression Answer Date Recorded Patient Health Questionnaire-9 Score 1 02/15/2025 Patient Health Questionnaire-9 Score 1 02/15/2025 Last PHQ-9: Questionnaire Data Not on file 0 02/15/2025 Housing Stability Answer Date Recorded What is your housing situation today? I have barry aguirre 02/15/[address] you li ve. Do you have problems with any of the following? None of the above 02/15/2025 Food Insecurity Answer Date Recorded Within the past 12 months, y ou worried that your food would run out before you got money to buy more: Never True 02/15/2025 Within the past 12 months,th e food you bought just didn't last and you didn't have enough money to get more: Never True 04/2025 Transportation Answer Date Recorded In the past 12 months, has l ack of transportation kept you from medical appts, meetings, work or from getting things needed for daily living? No 02/15/2025 Utilities Answer Date Recorded In the past 12 months, has t he electric, gas, oil or water company threatened to shut off services in your home? No 02/15/2025 Depression Answer Date Recorded Patient Health Questionnaire-2 Score 1 02/15/2025 Internet Access Answer Date Recorded Internet Access Q1 Yes 02/15/2025 Internet Access Q2 Not on file 02/15/2025 Comments No Intention Date Recorded Ambivalent about becoming (find ing) 02/15/2025 Sex and Gender Information Value Date Recorded Sex Assigned at Female 04/06/2022 10:36 AM EDT Legal Sex Female 10:36 AM EDT Gender Identity Female 04/06/2022 10:36 AM EDT Sexual Orientation Choose not to disclose 2021 10:36 AM EDT Last Filed Vital Signs Vital Sign Reading Time Taken Comments Blood Pressure 120/78 02/15/2025 2:20 PM EDT Pulse 82 02/15/2025 2:20 PM EDT Temperature 36.8 C (98.2 F) 02/15/2025 2:20 PM EDT Respiratory Rate 12 02/15/2025 2:20 PM EDT Oxygen Saturation 98% 02/15/2025 2:20 PM EDT Inhaled Oxygen Concentration - - Weight 80.7 kg (178 lb) 02/15/2025 2:20 PM EDT Height 162.6 cm (5' 4 ) 01/11/2023 11:26 AM EDT Body Mass Index 30.55 01/11/2023 11:26 AM EDT Plan of Treatment Health Maintenance Due Date Last Done Comments Disability Screening 1998 HPV Vaccines (1 - 3-dose series) 2013 Hepatitis B Vaccines (1 of 3 - 19+ 3-dose series) 2017 COVID-19 Vaccine ( - season) 2025 Influenza Vaccine (#1) 2025 2, 03/12/2020, 06/29/2019, Additional history exists Pap Smear 01/11/2026 01/11/2023 Tobacco Screening 01/16/2026 01/16/2025 Alcohol/Substance Use Screening 02/15/2026 02/15/2025 Depression Screening 02/15/2026 02/15/2025, 02/16/20 25 Family Planning (PISQ) 02/15/2026 02/15/2025 SDOH Screening 02/15/2026 02/15/2025 Lipid Panel 03/10/2027 03/10/2022 DTaP/Tdap/Td Vaccines (3 - Td or Tdap) 02/28/2032 02/27/2022, 10/09/2016 Zoster Vaccines (1 of 2) 2048 RSV Patients and Patients Aged 60 years or older (1 - 1-dose 75+ series) 2073 HIV Screening Completed 03/10/2022, 06/02/2019 Hepatitis C Screening Completed 03/10/2022 HIB Vaccines Aged Out No longer eligi ble based on patient's age to complete this topic Hepatitis A Vaccines Aged Out No long er eligible based on patient's age to complete this topic IPV Vaccines Aged Out No longer eligi ble based on patient's age to complete this topic Meningococcal B Vaccine Aged Out No l onger eligible based on patient's age to complete this topic Meningococcal Vaccine Aged Out No brayan ana eligible based on patient's age to complete this topic Pneumococcal Vaccine: Pediatrics (0 to 5 Years) and At-Risk Patients (6 to 49) Years Aged Out No longer eligible based on patient's age to complete this topic RSV under 20 months Aged Out No longe r eligible based on patient's age to complete this topic Rotavirus Vaccines Aged Out No longer eligible based on patient's age to complete this topic Procedures Procedure Name Priority Date/Time Associated Diagnosis Comments US PELVIS TRANSVAGINAL Routine 5 5:14 PM EDT URINALYSIS, COMPLETE, WITH REFLEX TO CULTURE Routine 01/28/2025 4:26 PM EDT HCG, QL, URINE Routine 01/28/2025 4:26 PM EDT CHLAMYDIA/N. GONORRHOEAE RNA, TMA, UROGENITAL Routine 01/28/2025 4:26 PM EDT BACTERIAL VAGINOSIS PANEL Routine 01/28/2025 4:26 PM EDT HCG, TOTAL, QN Routine 01/28/2025 1:09 PM EDT COMPREHENSIVE METABOLIC PANEL Routine 01/28/2025 1:09 PM EDT CBC WITH AUTO DIFFERENTIAL Routine 01/28/2025 1:08 PM EDT PAP SMEAR Routine 01/11/2023 9:53 AM EDT ZZZ HISTORICAL HEPATITIS C AB W/REFL TO HCV RNA, QN, PCR Routine 03/10/2022 9:32 AM EDT HIV 1/2 ANTIGEN/ANTIBODY, FOURTH GENERATION W/RFL Routine 03/10/2022 9:32 AM EDT LIPID PANEL, STANDARD Routine 03/10/2022 9:32 AM EDT from Last 3 Months or Most Recently Relevant to Health Maintenance Results * US Pelvis Transvaginal (01/28/2025 5:14 PM EDT) Anatomical Region Laterality Modality Pelvis Ultrasound 01/28/2025 5:14 PM EDT Narrative 01/28/2025 5:15 PM EDT [address] [address] Ultrasound Report Signed Patient: Jarrod Wilder MR# : [id number] : 2000 Acct:[id number] Age/Sex: 24 / F ADM Date: 01/28/25 Loc: HO.ED Attending Dr: Ordering Physician: Mata Rivera Date of Service: 01/28/25 Procedure(s): US pelvic and transvaginal Accession Number(s): [id number] cc: Giovanna Ann ; Mata Rivera CLINICAL HISTORY: pain --- Additional Notes or Special Instructions: recent IUD placement US female pelvis LMP:Unknown. Technique: Ultrasound examination of the pelvis was performed with transabdominal and transvaginal technique for better visualization of the ovaries. Images include: color Doppler. Comparison: None available Findings: Anteverted uterus measuring 8.9 x 3.9 x 3.7cm without masses. Intrauterine device in appropriate position. Thin endometrium with fluid in the endometrial canal. The right ovary is normal in size, measuring 3.2 x 2.4 x 2.5cm, volume of 10.0mL. There is normal echogenicity and vascularity. Heterogeneous avascular lesion measuring 2.2 x 1.7 x 1.9 cm. The left ovary is normal in size, measuring 2.7 x 1.6 x 1.9cm, volume of 4.3mL. There is normal echogenicity and vascularity. No lesions. There is a small amount of fluid in the cul-de-sac, which is likely physiologic. Impression: Properly positioned intrauterine device. 2.2 cm right ovarian cyst could be a hemorrhagic corpus luteum. 8-12 week follow up pelvic ultrasound can be performed. This document has been electronically signed by: Maura Celestin MD on 01/28/2025 17:14:56 Dictated By: Maura Jiménez MD Signed By: <Electronically signed by Maura Jiménez MD in OV> 01/28/251714 DD/ 13 TD/TT: 01/28/251713 Oiler Helper: Procedure Note Donotuseinterpreter, Image - 01/28/[address] [address] Ultrasound Report Signed Patient: Milady WilderCatracho# : [id number] : 2000Acct:[id number] Age/Sex: 24 / FADM Date: 01/28/25 Loc: HO.ED Attending Dr: Ordering Physician: Mata Rivera Date of Service: 01/28/25 Procedure(s): US pelvic and transvaginal Accession Number(s): [id number] cc: Giovanna Ann DO; Mata Rivera CLINICAL HISTORY: pain --- Additional Notes or Special Instructions:recent IUD placement US female pelvis LMP:Unknown. Technique: Ultrasound examination of the pelvis was performed with transabdominal and transvaginal technique for better visualization of the ovaries. Images include: color Doppler. Comparison: None available Findings: Anteverted uterus measuring 8.9 x 3.9 x 3.7cm without masses. Intrauterine device in appropriate position. Thin endometrium with fluid in the endometrial canal. The right ovary is normal in size, measuring 3.2 x 2.4 x 2.5cm, volume of 10.0mL. There is normal echogenicity and vascularity. Heterogeneous avascular lesion measuring 2.2 x 1.7 x 1.9 cm. The left ovary is normal in size, measuring 2.7 x 1.6 x 1.9cm, volume of 4.3mL. There is normal echogenicity and vascularity. No lesions. There is a small amount of fluid in the cul-de-sac, which is likely physiologic. Impression: Properly positioned intrauterine device. 2.2 cm right ovarian cyst could be a hemorrhagic corpus luteum. 8-12 week follow up pelvic ultrasound can be performed. This document has been electronically signed by: Maura Celestin MD on 01/28/2025 17:14:56 Dictated By: Maura Jiménez MD Signed By: <Electronically signed by Maura Jiménez MD in OV> 01/28/251714 DD/ 13 TD/TT: 01/28/251713 Oiler Helper: [facility] External Provider IMG US PROCEDURES Edited Result - Final * Bacterial Vaginosis (01/28/2025 4:26 PM EDT) TRICHOMONAS VAGINALIS DETECTION BY PCR NOT DETECTED Not Detect [facility] BACTERIAL VAGINOSIS DETECTION BY PCR NEGATIVE Negative [facility] Comment:The BV organism targ ets of the Xpert Xpress MVP test can becommensal in women; Xpert Xpress MVP positive results forbacterial vaginosis should be considered in conjunction withother clinical and patient information to determine thedisease status. Organisms that are not detected by the XpertXpress MVP test have also been reported to be associatedwith BV and aerobic vaginitis.The Xpert Xpress MVP test performance has not been evaluatedin patients under the age of 14. KELLY GROUP DETECTION BY PCR NOT DETECTED Not Detect [facility] Kelly glab krusei PCR NOT DETECTED Not Detect [facility] 01/28/2025 4:26 PM EDT 01/28/2025 4:29 PM EDT us Generic External Data Provider LAB MICROBIOLOGY - GENERAL ORDERABLES Final Result [facility] [address] [place] [phone] * (ABNORMAL) Urinalysis, Complete, with Reflex to Culture (01/28/2025 4:26 PM EDT) Color Urine Yellow [facility] Appearance Urine Clear [facility] PH 7.5 5.0 - 9.0 [facility] Glucose Urine UA Negative Negative mg/dL [facility] Urine Blood Negative Negative [facility] Specific [place] - Urine 1.010 1.005 - 1.025 [facility] Urine Protein Negative Neg-Trace mg/dL [facility] Urine Ketones Negative Negative mg/dL [facility] Nitrite Urine Negative Negative [facility] Leukocyte Esterase Urine Trace(A) Negative [facility] RBC Urine 0-2 0 - 2 /HPF [facility] Urine WBC 0-5 0 - 5 /HPF [facility] Urine Squamous Epithelial Cell 0-2 0 - 2 /HPF [facility] Urine Bacteria None Seen None Seen [facility] Hyaline Casts, Urine 0-2 0 - 2 /LPF [facility] 01/28/2025 4:26 PM EDT 01/28/2025 4:29 PM EDT Narrative [facility] - 01/28/2025 4:39 PM EDT Urine, Clean Catch us Generic External Data Provider LAB URINE ORDERAB LES Final Result [facility] [address] [place] [address] [phone] * Chlamydia/N. Gonorrhoeae RNA, TMA, Urogenitial (01/28/2025 4:26 PM EDT) CT PCR NOT DETECTED Not Detect. [facility] Comment:A not detected test result does not exclude the possibilityof infection because test results can be affected byimproper specimen collection, concurrent antibiotic therapy,or the number of organisms in the specimen which may bebelow the sensitivity of the test. As with many diagnostictests, results from the Xpert CT/NG assay should beinterpreted in conjunction with other laboratory andclinical data available to the clinician.Xpert CT/NG performance has not been evaluated in patientsless than 14 years of age. The assay should not be used forthe evaluationof suspected sexual abuse or for other medico-legalindications. Additional testing is recommended in anycircumstance when false positive or false negative resultscould lead to adverse medical, social or psychologicalconsequences. NG PCR NOT DETECTED Not Detect. [facility] Comment:A not detected test result does not exclude the possibilityof infection because test results can be affected byimproper specimen collection, concurrent antibiotic therapy,or the number of organisms in the specimen which may bebelow the sensitivity of the test. As with many diagnostictests, results from the Xpert CT/NG assay should beinterpreted in conjunction with other laboratory andclinical data available to the clinician.Xpert CT/NG performance has not been evaluated in patientsless than 14 years of age. The assay should not be used forthe evaluationof suspected sexual abuse or for other medico-legalindications. Additional testing is recommended in anycircumstance when false positive or false negative resultscould lead to adverse medical, social or psychologicalconsequences. 01/28/2025 4:26 PM EDT 01/28/2025 4:29 PM EDT Generic External Data Provider LAB MICROBIOLOGY - GENERAL ORDERABLES Final Result Performing Organization Address [facility] Co de Phone Number [facility] [address] [place] [phone] * HCG, Qualitative, Urine (01/28/2025 4:26 PM EDT) Urine NEGATIVE NEGATIVE [facility] Comment:This test was develo ped to detect early . Falsenegative results may occur after the 5th - 7th week ofpregnancy when using this test method. If clinicallyindicated, consider a serum hCG. 01/28/2025 4:26 PM EDT 01/28/2025 4:29 PM EDT Generic External Data Provider LAB URINE ORDERAB LES Final Result Performing Organization Address [facility] de Phone Number [facility] [address] [place] [phone] * hCG, Total, Quantitative (01/28/2025 1:09 PM EDT) HCG Quantitative <2 mIU/mL [facility] Comment:Weeks post LMP Appro ximate hCG(Last Menstrual Period) Range (mIU/ml)3 - 4 weeks 9 - 1304 - 5 weeks 75 - 2,6005 - 6 weeks 850 - 20,8006 - 7 weeks 4000 - 100,2007 - 12 weeks 11,500 - 289,60123 - 16 weeks 18,300 - 137,21733 - 29 weeks (2nd trimester) 1,400 - 53,70298 - 41 weeks (3rd trimester) 940 - [...] Provider LAB BLOOD ORDERAB LES Final Result [facility] [address] [place] [address] [phone] * Comprehensive Metabolic Panel (01/28/2025 1:09 PM EDT) Sodium 140 135 - 145 mmol/L [facility] Potassium 4.2 3.3 - 5.1 mmol/L [facility] Chloride 106 96 - 108 mmol/L [facility] Carbon Dioxide 25 22 - 29 mmol/L [facility] Anion Gap 13 12 - 20 [facility] Urea Nitrogen (BUN) 12 9 - 16 mg/dL [facility] Creatinine, Serum 0.85 0.5 - 1.4 mg/dL [facility] Creatinine Clr Calc Pharmacy 102.7 [facility] Comment:Provided height and weight: 162.56 cm,80.1 kg.eGFR (calculated from the MDRD study equation) and eCrCl(calculated from the Cockcroft-Gault equation) are based ondifferent parameters and may not yield comparable results.If eCrCl result is absurd, please check patient'sheight/weight. Estimated Glomerular Filt Rate >60 [facility] Comment:Chronic Kidney Disea se: Estimated GFR < 60 mL/min/1.64d9[place]loyut Kidney Disease: Estimated GFR < 15 mL/min/1.73m2 Glucose 84 60 - 115 mg/dL [facility] Calcium 9.3 8.4 - 10.2 mg/dL [facility] Bilirubin, Total 0.7 0.0 - 1.0 mg/dL [facility] Aspartate Amino Transferase 25 5 - 31 U/L [facility] Alanine Aminotransferase 20 0 - 31 U/L [facility] Total Protein 7.0 6.5 - 8.0 g/dL [facility] Albumin Level 4.4 3.5 - 5.0 g/dL [facility] Alkaline Phosphatase 57 39 - 117 U/L [facility] 01/28/2025 1:09 PM EDT 01/28/2025 1:28 PM EDT us Generic External Data Provider LAB BLOOD ORDERAB LES Final Result [facility] [address] [place] [address] [phone] * (ABNORMAL) CBC auto differential (01/28/2025 1:08 PM EDT) White Blood Count 8.7 4.8 - 10.8 X10*3/uL [facility] Red Blood Count 4.67 4.20 - 5.50 X10*6/uL [facility] Hemoglobin 13.9 12.0 - 16.0 g/dl [facility] Hematocrit 41.1 37.0 - 47.0 % [facility] Mean Corpuscular Volume 88.0 80.0 - 98.0 fL [facility] Mean Corpuscular Hemoglobin 29.8 27.0 - 33.0 pg [facility] Mean Corpuscular HGB Conc 33.8 31.0 - 35.0 g/dl [facility] Red Cell Distribution Width 12.4 11.0 - 16.0 % [facility] Platelet Count 293 160 - 400 X10*3/uL [facility] Mean Platelet Volume 9.4 9.4 - 12.3 fL [facility] Neutrophils Percent Auto 73.5(H) 45 - 73 % [facility] Imm Gran Pct Auto 0.5(H) 0.0 - 0.4 % [facility] Lymphocytes Percent Auto 18.2(L) 20 - 40 % [facility] Monocytes Percent Auto 7.0 2 - 11 % [facility] Eosinophils Percent Auto 0.3 0 - 4 % [facility] Basophils Percent Auto 0.5 0 - 2 % [facility] NRBC Pct Auto 0.0 0.0 - 0.2 /100WBC [facility] Neutrophils Absolute Auto 6.4 2.0 - 8.3 x10*3/uL [facility] Imm Gran Abs Auto 0.04(H) 0.00 - 0.03 X10*3/uL [facility] Lymphocytes Absolute Auto 1.6 1.2 - 4.9 X10*3/uL [facility] Monocytes Absolute Auto 0.6 0.1 - 1.2 X10*3/uL [facility] Eosinophils Absolute Auto 0.0 0.0 - 0.4 X10*3/uL [facility] Basophils Absolute Auto 0.0 0.0 - 0.2 X10*3/uL [facility] NRBC Abs Auto 0.000 0.0 - 0.012 X10*3/uL [facility] 01/28/2025 1:08 PM EDT 01/28/2025 1:28 PM EDT us Generic External Data Provider LAB BLOOD ORDERAB LES Final Result Performing Organization Address City/State/[facility] Co de Phone Number [facility] [address] [place] [phone] * Pap Smear (01/11/2023 9:53 AM EDT) 01/11/2023 9:53 AM EDT 01/12/2023 10:40 AM EDT Narrative [facility] - 01/30/2023 4:15 PM EDT ----- ------- Name: Jarrod Wilder Age/Sex: 22/F : 2000 Unit#: [id number] Attend Dr: IBRAHIMA POLK CNM Re01/11/23 Status: DEP REF Location: [facility] Disch: ----- ------- SPEC : [id number] RECD: 01/12/23 STATUS: JERRICA GREWAL NUM: [id number] ABIMAEL: 01/11/23-[address] [facility] [address]: IBRAHIMA POLK ENTERED: 01/13/23-1217 SP TYPE: Pap Smr OTHR DR: ORDERED: Pap Smear Interpretation Satisfactory for evaluation. Negative for intraepithelial lesion or malignancy. Coccobacilli consistent with shift in vaginal karen. Mild inflammation. Clinical Information LMP:Unknown date Previous PAP test:Unknown date/findings Material Received ThinPrep-Vaginal/Cervical ----- ------- Signed (signature on file) Smitha Urban 01/30/23 1615 ----- ------- END OF REPORT Ibrahima Segundo CN LAB CYTOLOGY ORDERABLES F inal Result [facility] [address] [place] [address] [phone] * HEPATITIS C AB W/REFL TO HCV RNA, QN, PCR (03/10/2022 9:32 AM EDT) HEPATITIS C ANTIBODY NON-REACTI VE NON-REACT SEFERINO [facility] INDEX 0.15 <1.00 [facility] Comment: HCV antibody was non-reactive. There is no laboratory evidence of HCV infection. In most cases, no further action is required. However, if recent HCV exposure is suspected, a test for HCV RNA (test code 40140) is suggested. For additional information please refer to http://Allworx/faq/BQR52m3 (This link is being provided for informational/ educational purposes only.) 03/10/2022 9:32 AM EDT Giovanna Seth DO HISTORICAL/NON ORDERABLE LAB S Final Result [facility] * HIV 1/2 ANTIGEN/ANTIBODY,FOURTH GENERATION W/RFL (03/10/2022 9:32 AM EDT) HIV-1/2 ANTIGEN AND ANTIBODIES, 4TH GENERATION W/ REFLEX NON-REACT SEFERINO NON-REACT SEFERINO [facility] Comment: HIV-1 antigen and HIV-1/HIV-2 antibodies were not detected. There is no laboratory evidence of HIV infection. PLEASE NOTE: This information has been disclosed to you from records whose confidentiality may be protected by state law. If your state requires such protection, then the state law prohibits you from making any further disclosure of the information without the specific written consent of the person to whom it pertains, or as otherwise permitted by law. A general authorization for the release of medical or other information is NOT sufficient for this purpose. For additional information please refer to http://72798.com.[employer]/faq/MMG008 (This link is being provided for informational/ educational purposes only.) The performance of this assay has not been clinically validated in patients less than 2 years old. 03/10/2022 9:32 AM EDT Giovanna Seth DO LAB BLOOD ORDERABLES Final R esult Performing Organization Address City/[facility] Co de Phone Number [facility] * (ABNORMAL) LIPID PANEL, STANDARD (03/10/2022 9:32 AM EDT) Chol/HDLC Ratio 4.7 <5.0 (calc) [facility] Cholesterol, Total 151 <200 mg/dL [facility] HDL Cholesterol 32(L) > OR = 50 mg/dL [facility] LDL Cholesterol 100(H) mg/dL (calc) [facility] Comment: Reference range: <100 Desirable range <100 mg/dL for primary prevention; <70 mg/dL for patients with CHD or diabetic patients with > or = 2 CHD risk factors. LDL-C is now calculated using the Tyrel-Lucas calculation, which is a validated novel method providing better accuracy than the Friedewald equation in the estimation of LDL-C. Tyrel SS et al. HENRI. 2013;310(19): 9866-0802 (http://education.[employer].com/faq/PYJ633) Non-HDL Cholesterol 119 <130 mg/dL (calc) [facility] Comment: For patients with diabetes plus 1 major ASCVD risk factor, treating to a non-HDL-C goal of <100 mg/dL (LDL-C of <70 mg/dL) is considered a therapeutic option. Triglycerides 98 <150 mg/dL CONVE RT[facility] 03/10/2022 9:32 AM EDT Giovanna Ann DO LAB BLOOD ORDERABLES Final R esult [facility] from Last 3 Months or Most Recently Relevant to Health Maintenance Insurance [facility] C3 Care Teams Pantry Attendant Relationship Specialty Start Date End Date Giovanna Ann DO [address] [place] [id number] PCP - General Family Medicine 03/05/20
== END 2025-04-27 14:29 | disposition home or self-care (01) ==
LOC: HO.US 14:28
PROVIDERS: PCP Family Medicine; Visit Provider Advanced Practice Midwife
DX: N83.201 Unspecified ovarian cyst, right side (principal)
CPT/HCPCS: 76830; 76856

== ENCOUNTER → 2025-04-27 14:30 | Outpatient (BNV) | payer MEDICAID, SELFPAY | PROVIDERS: PCP Family Medicine; Visit Provider Radiology Diagnostic Radiology | DX: N83.291 Other ovarian cyst, right side (principal) | CPT/HCPCS: 76830; 76856 ==